=== PATIENT | female | born 1985 | race Caucasian/White ===

== ENCOUNTER 2017-07-24 21:08 | Emergency (ER) | payer MEDICAID, OTHER ==
[2017-07-24 21:17] VITALS: RESP 18; TEMP 98.2
--- NOTE | 2017-07-24 21:29 | EDPHY ---
H & P Stated Complaint: EPIGASTRIC PAIN - Personal History LMP (Females 10-55): 15-21 Days Ago Current Tetanus/Diphtheria Vaccine: Yes - Medical/Surgical History Hx Asthma: No Hx Chronic Respiratory Disease: No Hx Diabetes: No Hx Cardiac Disease: No Hx Renal Disease: No Hx Cirrhosis: No Hx Alcoholism: No Hx HIV/AIDS: No Hx Splenectomy or Spleen Trauma: No Other PMH: NO PMH - Social History Smoking Status: Never smoked Time Seen by Provider: 07/24/17 21:29 Constitutional: Initial Vital Signs Temperature (C) 36.8 C 07/24/17 21:14 Heart Rate 76 07/24/17 21:14 Respiratory Rate 18 07/24/17 21:14 Blood Pressure 140/83 H 07/24/17 21:14 O2 Sat (%) 98 07/24/17 21:14 O2 Delivery Mode Room Air Allergies/Adverse Reactions: No Known Allergies Allergy (Unverified 07/24/17 21:17) Home Medications: Medication Instructions Recorded NK [No Known Home Meds] 07/24/17 Medical Decision Making - Diagnostics Imaging Results: Imaging Impressions Abdomen Ultrasound 07/24/17 21:50 Impression: 1. Cholelithiasis. No sonographic evidence for cholecystitis. 2. Fatty infiltration of the liver. Potentially, two areas of focal fatty sparing, as above described. 3. No ductal dilatation. Findings and recommendations discussed with Dr. Alex Callahan at 2257 hours, on July 24, 2017. Final report concurs with initial preliminary interpretation. ED Course/Re-evaluation: CHIEF COMPLAINT: Abdominal pain HISTORY OF PRESENT ILLNESS: The patient is a Finnish-speaking 32 y/o female arriving with her daughter complaining of abdominal pain. The pain occurred after she ate Monday and today. She denies any associated symptoms. She denies any abdominal surgeries. Parts of the HPI obtained using her daughter as a parking meter installer. REVIEW OF SYSTEMS: A 10 point review of systems was performed and is negative with the exception of the elements mentioned in the history of present illness. PHYSICAL EXAM: HR, BP, O2 Sat, RR. Temp noted General Appearance: Alert, well hydrated, appropriate, and non-toxic appearing. Head: Atraumatic without scalp tenderness or obvious injury Eyes: Pupils equal, round, reactive to light and accommodation, EOMI, no trauma , no injection. Ears: Clear bilaterally, no perforation, normal landmarks Nose: Atraumatic, no rhinorrhea, clear. Throat: There is no erythema or exudates, no lesions, normal tonsils, mucus membranes moist. Neck: Supple, 2+ carotid upstroke, nontender, no lymphadenopathy. Respiratory: No retractions, no distress, no wheezes, and no accessory muscle use. Lungs are clear to auscultation bilaterally. Cardiovascular: Regular rate and rhythm, no murmurs, rubs, or gallops. Bilateral carotid, radial, dorsalis pedis, and posterior tibial pulses intact. Good capillary refill all extremities. Gastrointestinal: Positive Beverly's sign, epigastrium pain, abdomen is soft, non -distended, no masses, no rebound, no guarding, no peritoneal signs. Musculoskeletal: Normal active ROM of all extremities, atraumatic. Neurological: Alert, appropriate, and interactive. The patient has normal DTRs and non-focal cranial nerves, motor, sensory, and cerebellar exam. Skin: No rashes, good turgor, no nodules on palpation. Past medical history: Denies Past surgical history: Denies Family history: Non-contributory Social history: Daughter at bedside, Finnish-speaking, lives in [place] DIAGNOSTICS/PROCEDURES/CRITICAL CARE TIME: DIFFERENTIAL DIAGNOSIS: The differential diagnosis for the patient's abdominal pain included but was not limited to gallstones, gallbladder inflammation, ovarian cyst, pelvic inflammatory disease, ovarian torsion, urinary tract infection, ectopic , cholecystitis, and appendicitis. MEDICAL DECISION MAKING: The patient is a 32 y/o female complaining of abdominal pain after she eats. She has no associated symptoms. On exam she has a positive Beverly's sign. Labs, ultrasound, and symptom management planned. ( Sonny Barone) Ultrasound of the right upper quadrant The results of the study are this shows fatty liver with a gallbladder that is full of gallstones but no evidence of acute cholecystitis.. I discussed the results of this study with the radiologist Dr. Ruelas [id number]: I did go and re-evaluate this patient this time she is resting comfortably she has not any vomiting. Re-examination her abdomen is soft nontender there is no guarding or peritoneal signs. Specifically she was tender in the right upper quadrant when she arrived to the emergency room she is feeling much better. She has no significant tenderness at this time. Her ultrasound shows a gallbladder full of gallstones but there is no ductal dilatation there is no pericholecystic fluid. No evidence of acute cholecystitis. I went over return precautions with her. She understands return emergency room she develops worsening abdominal pain fever vomiting. I have referred her to General surgery outpatient. She understands not eat any fatty greasy fried foods. And return if worse. She is comfortable this plan and comfortable going home. (Alex Guzmán) - Data Points Laboratory Results: Laboratory Results 07/24/17 22:10 07/24/17 22:10 07/24/17 07/24/17 07/24/17 23:44 22:10 22:10 WBC RBC Hgb Hct MCV MCH MCHC RDW Plt Count MPV Neut % (Auto) Lymph % (Auto) [place] % (Auto) Eos % (Auto) Baso % (Auto) Nucleat RBC Rel Count Absolute Neuts (auto) Absolute Lymphs (auto) Absolute Monos (auto) Absolute Eos (auto) Absolute Basos (auto) Absolute Nucleated RBC Immature Gran % Immature Gran # Sodium 139 mEq/L mEq/L (134-144) Potassium 4.4 mEq/L mEq/L (3.5-5.2) Chloride 102 mEq/L mEq/L (97-110) Carbon Dioxide 23 mEq/l mEq/l (22-31) Anion Gap 14 mEq/L mEq/L (8-16) BUN 17 mg/dL mg/dL (7-23) Creatinine 1.0 mg/dL mg/dL (0.6-1.0) Estimated GFR > 60 Glucose 89 mg/dL mg/dL (70-100) Calcium 10.2 mg/dL mg/dL (8.5-10.4) Total Bilirubin 0.6 mg/dL mg/dL (0.1-1.4) Conjugated Bilirubin 0.4 mg/dL mg/dL (0.0-0.5) Unconjugated Bilirubin 0.2 mg/dL mg/dL (0.0-1.1) AST 26 IU/L IU/L (14-46) ALT 33 IU/L IU/L (9-52) Alkaline Phosphatase 109 IU/L IU/L (38-126) Total Protein 7.5 g/dL g/dL (6.3-8.2) Albumin 4.4 g/dL g/dL (3.5-5.0) Lipase 143 IU/L IU/L (23-300) Beta HCG, Qual NEGATIVE Urine Color PALE YELLOW Urine Appearance HAZY Urine pH 6.0 (5.0-7.5) Ur Specific [place] 1.006 (1.002-1.030) Urine Protein NEGATIVE (NEGATIVE) Urine Ketones NEGATIVE (NEGATIVE) Urine Blood 1+ H (NEGATIVE) Urine Nitrate NEGATIVE (NEGATIVE) Urine Bilirubin NEGATIVE (NEGATIVE) Urine Urobilinogen NEGATIVE EU EU (0.2-1.0) Ur Leukocyte Esterase 1+ H (NEGATIVE) Urine Glucose NEGATIVE (NEGATIVE) 07/24/17 22:10 WBC 13.93 10^3/uL H 10^3/uL (3.80-9.50) RBC 4.79 10^6/uL 10^6/uL (4.18-5.33) Hgb 14.6 g/dL g/dL (12.6-16.3) Hct 43.5 % % (38.0-47.0) MCV 90.8 fL fL (81.5-99.8) MCH 30.5 pg pg (27.9-34.1) MCHC 33.6 g/dL g/dL (32.4-36.7) RDW 12.4 % % (11.5-15.2) Plt Count 317 10^3/uL 10^3/uL (150-400) MPV 10.5 fL fL (8.7-11.7) Neut % (Auto) 59.0 % % (39.3-74.2) Lymph % (Auto) 32.7 % % (15.0-45.0) [place] % (Auto) 4.4 % L % (4.5-13.0) Eos % (Auto) 3.2 % % (0.6-7.6) Baso % (Auto) 0.4 % % (0.3-1.7) Nucleat RBC Rel Count 0.0 % % (0.0-0.2) Absolute Neuts (auto) 8.21 10^3/uL H 10^3/uL (1.70-6.50) Absolute Lymphs (auto) 4.56 10^3/uL H 10^3/uL (1.00-3.00) Absolute Monos (auto) 0.61 10^3/uL 10^3/uL (0.30-0.80) Absolute Eos (auto) 0.45 10^3/uL H 10^3/uL (0.03-0.40) Absolute Basos (auto) 0.06 10^3/uL 10^3/uL (0.02-0.10) Absolute Nucleated RBC 0.00 10^3/uL 10^3/uL (0-0.01) Immature Gran % 0.3 % % (0.0-1.1) Immature Gran # 0.04 10^3/uL 10^3/uL (0.00-0.10) Sodium Potassium Chloride Carbon Dioxide Anion Gap BUN Creatinine Estimated GFR Glucose Calcium Total Bilirubin Conjugated Bilirubin Unconjugated Bilirubin AST ALT Alkaline Phosphatase Total Protein Albumin Lipase Beta HCG, Qual Urine Color Urine Appearance Urine pH Ur Specific [place] Urine Protein Urine Ketones Urine Blood Urine Nitrate Urine Bilirubin Urine Urobilinogen Ur Leukocyte Esterase Urine Glucose Medications Given: Discontinued Medications Hydromorphone HCl (Dilaudid) 1 mg IVP EDNOW ONE Stop: 07/24/17 21:51 Last Admin: 07/24/17 22:35 Dose: 1 mg Sodium Chloride (Ns) 1,000 mls @ 0 mls/hr IV EDNOW ONE; Wide Open PRN Reason: Protocol Stop: 07/24/17 21:51 Last Admin: 07/24/17 22:34 Dose: 1,000 mls Ertapenem 1 gm/ Sodium (Chloride) 100 mls @ 200 mls/hr IV EDNOW ONE PRN Reason: Protocol Stop: 07/24/17 22:21 Last Admin: 07/24/17 23:18 Dose: Not Given Ketorolac Tromethamine (Toradol) 30 mg IVP EDNOW ONE Stop: 07/24/17 21:51 Last Admin: 07/24/17 23:16 Dose: Not Given Ondansetron HCl (Zofran) 4 mg IVP EDNOW ONE Stop: 07/24/17 21:51 Last Admin: 07/24/17 22:35 Dose: 4 mg Departure - Departure Disposition: Home, Routine, Self-Care Clinical Impression: Gallstones Condition: Good Instructions: Gallstones (ED) Additional Instructions: 1. Do not eat any fatty greasy foods. This will call use your gallbladder to get painful. 2. Return to the emergency room if you have worsening abdominal pain fever vomiting. 3. Please make a follow-up appointment with a general surgeon I have referred you. You can electively have youe gallbladder out. 4. Return if worse. Referrals: NONE *PRIMARY CARE P,. [Primary Care Provider] - As per Instructions Sahan Kyle MD [Medical Doctor] - As per Instructions Print Language: Finnish Report Scribed for: Sonny Barone Report Scribed by: Anay Borrego Date of Report: 07/24/17 Time of Report: 21:41
[2017-07-24] MEDS ORDERED: NS 1,000 ML IV ONE (21:50)
[2017-07-24] MEDS ORDERED: HYDROmorphONE/DILAUDID 1 MG/ML INJ IVP ONE (21:50)
[2017-07-24] MEDS ORDERED: ONDANSETRON 4 MG/2 ML VIAL IVP ONE (21:50)
[2017-07-24] MEDS ORDERED: KETOROLAC 30 MG/1 ML SDV IVP ONE (21:50)
[2017-07-24] MEDS ORDERED: ERTAPENEM 1 GM in NS 100 ML IV ONE (21:52)
[2017-07-24 22:18] LABS: % IMMATURE GRANULYOCYTES 0.3 % (0.0-1.1); ABSOLUTE IMMATURE GRANULOCYTES 0.04 10^3/uL (0.00-0.10); ADD DIFF? NO; ADD MORPH? NO; ADD SCAN? NO; ATYPICAL LYMPHOCYTE FLAG 0 (0-99); FRAGMENT RBC FLAG 0 (0-99); HEMATOCRIT 43.5 % (38.0-47.0); HEMOGLOBIN 14.6 g/dL (12.6-16.3); LEFT SHIFT FLG 0 (0-99); LIPEMIA HEMOLYSIS FLAG 80 (0-99); MEAN CELL HEMOGLOBIN 30.5 pg (27.9-34.1); MEAN CELL HEMOGLOBIN CONCENTR. 33.6 g/dL (32.4-36.7); MEAN CELL VOLUME 90.8 fL (81.5-99.8); MEAN PLATELET VOLUME 10.5 fL (8.7-11.7); PLATELET CLUMPS FLAG 10 (0-99); PLATELET COUNT 317 10^3/uL (150-400); RED BLOOD CELL COUNT 4.79 10^6/uL (4.18-5.33); RED CELL DISTRIBUTION WIDTH 12.4 % (11.5-15.2)
[2017-07-24 23:06] LABS: ALANINE AMINOTRANSFERASE 33 IU/L (9-52); ALBUMIN 4.4 g/dL (3.5-5.0); ALKALINE PHOSPHATASE 109 IU/L (38-126); ANION GAP 14 mEq/L (8-16); ASPARTATE AMINOTRANSFERASE 26 IU/L (14-46); BILIRUBIN,TOTAL 0.6 mg/dL (0.1-1.4); BILIRUBIN-CONJUGATED 0.4 mg/dL (0.0-0.5); BILIRUBIN-UNCONJUGATED 0.2 mg/dL (0.0-1.1); CALCIUM 10.2 mg/dL (8.5-10.4); CARBON DIOXIDE 23 mEq/l (22-31); CHLORIDE 102 mEq/L (97-110); GLOMERULAR FILTRATION RATE > 60; GLUCOSE 89 mg/dL (70-100); POTASSIUM 4.4 mEq/L (3.5-5.2); SODIUM 139 mEq/L (134-144); TOTAL PROTEIN 7.5 g/dL (6.3-8.2)
[2017-07-24 23:48] LABS: COLOR PALE YELLOW; LEUKOCYTE ESTERASE,URINE 1+ (NEGATIVE); NITRITE,URINE NEGATIVE (NEGATIVE)
[2017-07-24 23:57] LABS: BACTERIA TRACE /hpf (NONE SEEN)
[2017-07-25 00:30] VITALS: BP 114/73; PULSE 77; O2SAT 94
== END 2017-07-25 00:28 | disposition home or self-care (01) ==
DX: K80.20 Calculus of gallbladder without cholecystitis without obstruction (principal); E86.9 Volume depletion, unspecified
CPT/HCPCS: 96374; J1170; J1335; J1885; J2405